=== PATIENT | male | born 1985 | race Caucasian/White ===

== ENCOUNTER 2020-04-04 19:49 | Inpatient (IN) | payer OTHER ==
[~2020-04-04] VITALS: Ht 177.8 cm; Wt 95.2 kg
[~2020-04-04 19:49] MED LIST: CLIN300 PO
[2020-04-04] MEDS ORDERED: ASPI325EC PO (20:08)
[2020-04-04] MEDS ORDERED: ACET325 PO (20:08)
[2020-04-04] MEDS ORDERED: CLIN300 PO (20:09)
[2020-04-04] MEDS ORDERED: BENADRYL25 MG PO (20:09)
[2020-04-04] MEDS ORDERED: FAMO20 PO (20:09)
[2020-04-04] MEDS ORDERED: BISA5EC PO (20:09)
[2020-04-04] MEDS ORDERED: LORA.5 PO (20:10)
[2020-04-04] MEDS ORDERED: POTA10T PO (20:10)
[2020-04-04] MEDS ORDERED: POTCHL20ER PO (20:11)
[2020-04-04] MEDS ORDERED: TRAM50 PO (20:11)
[2020-04-04] MEDS ORDERED: SPIR50 PO (20:11)
[2020-04-04] MEDS ORDERED: MAGNESIUM OXID500 MG PO (20:52)
[2020-04-04] MEDS ORDERED: TUMS500 MG PO (20:54)
--- NOTE | 2020-04-05 00:23 | NUR ---
2350 PT ADMITTED TO ROOM 358 PER CART FROM ER; PT MOVED FROM CART TO BED VIA SLIDER SHEET X 4 ASSIST; PT HAS RLE EXTERNAL FIXATOR NOTED; PT HAS WOUNDS TO RLE WITH PHOTOS OBTAINED WITH CONSENT OBTAINED.
[2020-04-05 05:11] LABS: BASOPHILS ABSOLUTE AUTO 0.04 K/mm3 (0.00-0.23); BASOPHILS PERCENT AUTO 0 % (0-2); EOSINOPHILS ABSOLUTE AUTO 0.22 K/mm3 (0.00-0.68); EOSINOPHILS PERCENT AUTO 2 % (0-6); Hematocrit 33.7 % (37.0-53.0); Hemoglobin 11.8 g/dL (13.5-17.5); IMMATURE GRAN ABSOLUTE AUTO 0.08 K/mm3 (0.00-0.10); IMMATURE GRAN PERCENT AUTO 1 % (0-1); LYMPHOCYTES ABSOLUTE AUTO 3.46 K/mm3 (0.84-5.20); LYMPHOCYTES PERCENT AUTO 30 % (21-46); MONOCYTES ABSOLUTE AUTO 0.82 K/mm3 (0.16-1.47); MONOCYTES PERCENT AUTO 7 % (4-13); Mean Corpuscular HGB 26.3 pg (26.0-34.0); Mean Corpuscular Volume 75 fL (80-100); Mean Platelet Volume 10.3 fL (9.1-12.4); NEUTROPHILS ABSOLUTE AUTO 7.03 K/mm3 (1.96-9.15); NEUTROPHILS PERCENT AUTO 60 % (41-73); Platelet Count 297 K/mm3 (150-400); RDW Coefficient Variation 16.4 % (11.7-14.2); Red Blood Cell Count 4.49 M/mm3 (4.30-5.90); White Blood Cell Count 11.65 K/mm3 (4.00-11.30)
[2020-04-05 05:39] LABS: Bun/Creatinine Ratio 15.5 (12.0-20.0); Calcium, Blood 9.5 mg/dL (8.5-10.1); Creatinine, Blood 1.81 mg/dL (0.60-1.20)
[2020-04-05 05:41] LABS: Potassium, Blood 1.6 mmol/L (3.5-5.5)
--- NOTE | 2020-04-05 06:17 | NUR ---
SHIFT SUMMARY: 35 Y/O MALE RESTED COMFORTABLY ALL SHIFT; PT ADMITTED K+ 1.6 WITH SUBSEQUENT LABS REFLECTING NO CHANGE THIS AM; PT IS RECEIVING SECOND DOSAGE OF K+ 20 MEQ IVPB X 2 THIS AM (RATE K+ SLOWED TO 40ML/HR AFTER C/O BURNING AND IV RESTARTED TO LFA PER DILMA MAHAN RN); PT HAS EXTERNAL FIXATOR NOTED TO RLE WITH PIN CARE PERFORMED BY THIS NURSE; PT IS COVID POSITIVE WITH DROPLET ISOLATION MAINTAINED; TELEMETRY REFLECTS NSR WITH BBB; DENIES PAIN OR NAUSEA; ALERT AND ORIENTED X 4; BED LOW POSITION WITH CALL LIGHT AT SIDE.
[2020-04-05 15:37] LABS: Bun/Creatinine Ratio 14.1 (12.0-20.0); Calcium, Blood 8.9 mg/dL (8.5-10.1); Creatinine, Blood 1.92 mg/dL (0.60-1.20)
[2020-04-05 15:38] LABS: Potassium, Blood 1.9 mmol/L (3.5-5.5)
--- NOTE | 2020-04-05 18:58 | NUR ---
SHIFT SUMMARY PT IS A&OX4. ABLE TO MAKE NEEDS KNOWN. PT USES URINAL IN ROOM. HE HAD DIFFICUTLY KEEPING FOOD DOWN. STATED IT FELT LIKE IT WAS STUCK IN MIDDLE OF CHEST. PT ENDED UP THROWING UP 5 TIMES DURING SHIFT, DECLINED ANTIEMETIC MEDICATION STATING IT WOULD NOT WORK, SAID HE HAS ULCERS. WOUND CARE DONE ON RIGHT FOOT. CRITICAL POTASSIUM VALUE OF 1.9 RECEIVED AT 1538, NOTIFIED NO NEW ORDERS GIVEN, VALUE TRENDING UP. PT IN ROOM, CALL LIGHT W/IN REACH.
--- NOTE | 2020-04-06 03:46 | NUR ---
35 year old Adult Male from [place], [place] who had rt le fracture with external fixation placed & replaced admitted 04/05/20 with hypokalemia & covid 19 postive. He was at rehab post surgery & contacted covid 19 at [facility]. He is on room air & denies acute s/sx of covid 19. 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 He is in special droplet contact precautions. PT has external fixation rt LE 10 pin & pin site care completed. PT says he has hx of upper gastric ulcerations which make swallowing difficult & cause emisis. Several emisis & poor appetite. Did drink 1 evelin ensure & provided second ensure. Continues IVF with 20 meq kcl for hypokalemia.
[2020-04-06 04:42] LABS: Hematocrit 30.6 % (37.0-53.0); Hemoglobin 10.6 g/dL (13.5-17.5); Mean Corpuscular HGB 26.4 pg (26.0-34.0); Mean Corpuscular HGB Conc 34.6 g/dL (31.5-36.5); Mean Corpuscular Volume 76 fL (80-100); Mean Platelet Volume 10.1 fL (9.1-12.4); Platelet Count 260 K/mm3 (150-400); RDW Coefficient Variation 16.4 % (11.7-14.2); RDW Standard Deviation 45.1 fL (35.1-46.3); Red Blood Cell Count 4.01 M/mm3 (4.30-5.90); White Blood Cell Count 9.15 K/mm3 (4.00-11.30)
[2020-04-06 05:05] LABS: Percent Saturation 23.9 % (20.0-50.0)
[2020-04-06 05:08] LABS: Albumin, Blood 2.9 g/dL (3.4-5.0); Albumin/Globulin Ratio 0.8 (0.8-1.8); Bilirubin, Total 1.1 mg/dL (0.1-1.0); Bun/Creatinine Ratio 14.7 (12.0-20.0); Calcium, Blood 8.5 mg/dL (8.5-10.1); Creatinine, Blood 1.91 mg/dL (0.60-1.20); Globulin, Blood 3.5 g/dL (2.2-4.0); Potassium, Blood 1.6 mmol/L (3.5-5.5); Total Protein, Blood 6.4 g/dL (6.4-8.2)
--- NOTE | 2020-04-06 14:42 | NUR ---
PATIENT IS ALERT AND ORIENTED. PLEASANT AND COOPERATIVE WITH STAFF. VITALS HAVE BEEN STABLE. PATIENT GOT UP WITH SBA AND FWW TO USE THE BATHROOM THIS AFTERNOON. CONTINUES ON IV AND ORAL POTASSIUM FOR CRITICALLY LOW POTASSIUM LEVELS. PO ABX TAKEN WITHOUT S/SX OF ADVERSE REACTIONS NOTED OR REPORTED. PIN SITE CARE PERFORMED THIS MORNING PER ORDERS. PATIENT IN ROOM AT THIS TIME WITH CALL LIGHT IN REACH.
--- NOTE | 2020-04-07 05:24 | NUR ---
PT continues to be recieving oral & IV potassium for critically low potassium. He has several emisis despite antiemetic use. MOM given for bowel care, no recent stools. Ensure provided.PT continues with RT LE external fixation device. 10 pins patent. Denies need for pain meds.
[2020-04-07 05:31] LABS: Magnesium, Blood 1.9 mg/dL (1.6-2.4)
[2020-04-07 05:47] LABS: Bun/Creatinine Ratio 14.2 (12.0-20.0); Calcium, Blood 8.5 mg/dL (8.5-10.1); Creatinine, Blood 1.97 mg/dL (0.60-1.20); Potassium, Blood 2.2 mmol/L (3.5-5.5)
--- NOTE | 2020-04-07 16:35 | NUR ---
PT IS A/OX3, PLEASANT AND COOPERATIVE, THE PT IS UP WITH MINIMAL ASSIST TO THE BATHROOM, UP WITHOUT ASSIST TO THE SIDE OF THE BED, PT HAS A RIGHT LEG FIXATOR SECURE AND INPLACE, PIN SITES WERE CLEANED TODAY, PT TOLERATED WELL, PT APPEARS TO BE BREATHING EASILY ON RA AT THIS TIME, SO FAR THIS SHIFT THE PT HAS DENIED ANY PAIN, NAUSEA OR SOB, CALL LIGHT IN REACH WILL CONTINUE TO MONITOR AND ASSESS FOR CHANGES
--- NOTE | 2020-04-08 05:20 | NUR ---
SHIFT SUMMARY ASSUMED CARE OF PT AT 1900. PT IS A/OX4. HEART SOUNDS REGULAR, LUNG SOUDNS CLEAR. PT IS 1P SBA TO BATHROOM WITH FWW. PT USED URINAL T/O THE NIGHT. PT R FOOT IS PINNED. WOUNDS CLEANED PER MD ORDERS. NO ACUTE EVENTS DURING THE NIGHT. PT SLEPT T/O THE NIGHT. CALL LIGHT IN REACH, BED IN LOWEST POSTION.
[2020-04-08 05:23] LABS: BASOPHILS ABSOLUTE AUTO 0.03 K/mm3 (0.00-0.23); BASOPHILS PERCENT AUTO 0 % (0-2); EOSINOPHILS ABSOLUTE AUTO 0.19 K/mm3 (0.00-0.68); EOSINOPHILS PERCENT AUTO 2 % (0-6); Hematocrit 31.2 % (37.0-53.0); Hemoglobin 10.5 g/dL (13.5-17.5); IMMATURE GRAN ABSOLUTE AUTO 0.09 K/mm3 (0.00-0.10); IMMATURE GRAN PERCENT AUTO 1 % (0-1); LYMPHOCYTES ABSOLUTE AUTO 2.94 K/mm3 (0.84-5.20); LYMPHOCYTES PERCENT AUTO 33 % (21-46); MONOCYTES ABSOLUTE AUTO 0.54 K/mm3 (0.16-1.47); MONOCYTES PERCENT AUTO 6 % (4-13); Mean Corpuscular HGB 26.6 pg (26.0-34.0); Mean Corpuscular HGB Conc 33.7 g/dL (31.5-36.5); Mean Corpuscular Volume 79 fL (80-100); Mean Platelet Volume 9.9 fL (9.1-12.4); NEUTROPHILS ABSOLUTE AUTO 5.25 K/mm3 (1.96-9.15); NEUTROPHILS PERCENT AUTO 58 % (41-73); Platelet Count 279 K/mm3 (150-400); RDW Coefficient Variation 17.3 % (11.7-14.2); RDW Standard Deviation 49.2 fL (35.1-46.3); Red Blood Cell Count 3.95 M/mm3 (4.30-5.90); White Blood Cell Count 9.04 K/mm3 (4.00-11.30)
[2020-04-08 06:01] LABS: Albumin, Blood 2.9 g/dL (3.4-5.0); Albumin/Globulin Ratio 0.9 (0.8-1.8); Bilirubin, Total 0.6 mg/dL (0.1-1.0); Calcium, Blood 8.9 mg/dL (8.5-10.1); Creatinine, Blood 1.85 mg/dL (0.60-1.20); Globulin, Blood 3.3 g/dL (2.2-4.0); Total Protein, Blood 6.2 g/dL (6.4-8.2)
[2020-04-08 06:04] LABS: Potassium, Blood 2.3 mmol/L (3.5-5.5)
--- NOTE | 2020-04-08 17:00 | NUR ---
Shift Summary A/Ox4, pleasant and cooperative. Bedrest. Calls for needs appropriately. Wound care completed per orders. Patient had 1 episode of emesis, continues to c/o food getting stuck in esophagus and having to vomit because of this. Tele: first degree @ 75. Follows directions well. Denies pain, nausea. CT scan of chest completed. No acute concerns, WCTM.
--- NOTE | 2020-04-08 19:15 | NUR ---
ASSUMED CARE RECEIVED REPORT FROM MARI CHAPA. PT RESTING, NO ACUTE DISTRESS NOTED. RESPS E/U. EXTERNAL FIXATION IN PLACE TO RLE. NO ACUTE NEEDS ASSESSED AT THIS TIME. CALL LIGHT, POSSESSIONS IN REACH, BED IN LOW POSITION WITH ALARMS ON. CONTINUE TO MONITOR.
--- NOTE | 2020-04-08 23:00 | NUR ---
NOTIFIED DR. MCPHERSON OF HOLDING PT'S ALDACTONE D/T BP OF 94/60. NO NEW ORDERS RECEIVED. CONTINUE TO MONITOR.
[2020-04-09 05:09] LABS: Bun/Creatinine Ratio 11.8 (12.0-20.0); Calcium, Blood 9.1 mg/dL (8.5-10.1); Creatinine, Blood 1.7 mg/dL (0.60-1.20); Potassium, Blood 2.5 mmol/L (3.5-5.5)
--- NOTE | 2020-04-09 06:27 | NUR ---
MANAGER EMS SUMMARY PT RESTING COMFORTABLY, IN NO ACUTE DISTRESS. VS REVIEWED, WNL. PT HAS SLEPT ON AND OFF T/O NIGHT, NO ACUTE CHANGES IN CONDITION NOTED. PIN CARE DONE PER ORDERS, PT TOLERATED WELL. EXTERNAL FIXATION TO RLE REMAINS IN PLACE. PT DENIES NEEDS AT THIS TIME. SPOKE TO DR. ST REGARDING PT'S POTASSIUM OF 2.5, NO NEW ORDERS RECEIVED. CONTINUE TO MONITOR, REPORT OFF TO DAY RN.
[2020-04-09] MEDS ORDERED: ONDA4 PO (11:38)
[2020-04-09] MEDS ORDERED: CEPH500 PO (11:38)
[2020-04-09] MEDS ORDERED: SUCR1 PO (11:39)
[2020-04-09] MEDS ORDERED: ROXICODONE5 MG PO (11:39)
[2020-04-09] MEDS ORDERED: PROBIOTIC1 EA13 PO (11:40)
--- NOTE | 2020-04-09 13:25 | NUR ---
PATIENT DISCHARGE: PATIENT DISCHARGED TO HOME THIS SHIFT. MEDICATION RECONCILIATION COMPLETED; MED LIST FAXED TO [facility]. DISCHARGE EDUCATION COMPLETED WITH PATIENT. PATIENT TRANSPORTED TO EXIT BY AMBULANCE STAFF WITH WHEELCHAIR AT 1319. PATIENT DEPARTED [facility] VIA WHEELCHAIR VAN.
== END 2020-04-09 13:08 | disposition home or self-care (01) | DRG 640 ==
LOC: ER 19:49 → ERHOLD 19:50 → MEDS 19:50
PROVIDERS: Internal Medicine; Nurse Practitioner Acute Care; ADMIT Internal Medicine
DX: E87.6 Hypokalemia (principal); U07.1 COVID-19; B37.0 Candidal stomatitis; N17.9 Acute kidney failure, unspecified; K21.9 Gastro-esophageal reflux disease without esophagitis; N18.30 Chronic kidney disease, stage 3 unspecified; G62.9 Polyneuropathy, unspecified; Z89.412 Acquired absence of left great toe; Z79.82 Long term (current) use of aspirin; S82.891D Other fracture of right lower leg, subsequent encounter for closed fracture with routine healing; D64.9 Anemia, unspecified; K20.90 Esophagitis, unspecified without bleeding; R13.10 Dysphagia, unspecified; Y92.9 Unspecified place or not applicable; L89.611 Pressure ulcer of right heel, stage 1
CPT/HCPCS: 36415; 71250; 80048; 80053; 82728; 83540; 83550; 83735; 84132; 85025; 85027; 93005; 93010; 96365; 96366; 96372; 96375; 96376; 99285-25; A9270; G0378; J1650; J2405; J3480; J7030